=== PATIENT | male | born 1985 | race African-American/Black ===

== ENCOUNTER → 2016-05-21 | Outpatient (CLI) | payer OTHER ==
[~2016-05-21] MED LIST: ASPI-390 PO; CALC200T PO; CLR10 PO; FLUO20CA35 PO; HYDR12.56 PO; PRLSR20 PO; RISP4TAB7 PO; SULI200T4 PO
[2016-05-21 18:39] LABS: HEMATOCRIT 43.6 % (42-52); MEAN CELL VOLUME 85.5 fL (80-100); MEAN CORPUSCULAR HEMOGLOBIN 28.8 pg (25-34); MEAN PLATELET VOLUME 9.2 fL (7.4-10.4); PLATELET COUNT 210 K/uL (130-400); WHITE BLOOD COUNT 2.81 K/uL (4.8-10.8)
[2016-05-21 18:42] LABS: MEAN CORPUSCULAR HGB CONC 33.7 g/dl (32-36)
[2016-05-21 19:19] LABS: BLOOD UREA NITROGEN 12 mg/dl (7-18); BUN/CREATININE RATIO 10.3 (10-20); CALCIUM 8.8 mg/dl (8.5-10.1); CARBON DIOXIDE 32 mmol/L (21-32); CHLORIDE 109 mmol/L (98-107); GLUCOSE 78 mg/dl (70-99); POTASSIUM 4.5 mmol/L (3.5-5.1); SODIUM 147 mmol/L (136-145)
--- NOTE | 2016-05-23 07:43 | CODING QUERY NO DIAGNOSIS ---
TREATMENT RENDERED WITHOUT A DIAGNOSIS To promote full compliance with coding requirements relating to patient care, physician participation is requested in all cases of certified medical records coder uncertainty. Please assist us with providing a diagnosis/symptom for the test(s) below: A diagnosis/symptom was not documented on your Order. A valid diagnosis/symptom is required to bill all insurances. Please remember that we are unable to code a diagnosis of rule out, probable, possible, questionable, or suspected. Tests that require a diagnosis from 05/21/16: * CBC DIAGNOSIS: * BASIC METABOLIC DIAGNOSIS: : Provider Signature: Date: Thank you Radha Daniel [employer] Once completed, please kindly fax back to [phone] For questions please call [phone]
== END ==
LOC: C.LABSPEC 12:11
DX: Z00.00 Encounter for general adult medical examination without abnormal findings (principal)